=== PATIENT | female | born 1950 | race Caucasian/White ===

== ENCOUNTER 2017-12-10 16:16 | Emergency (ER) | payer OTHER ==
[~2017-12-10] VITALS: Ht 160 cm; Wt 108.6 kg
[~2017-12-10 16:16] MED LIST: ASPI81TA17 PO; FERR325T PO; GLIP5TAB8 PO; LEVO50TA51 PO; LOVA20TA PO; MAXZ25 PO; PIOG45 PO
[2017-12-10 16:48] VITALS: BP 189/88; PULSE 73; RESP 16; TEMP 98.8; O2SAT 99
[2017-12-10] MEDS ORDERED: FERR325T18 PO (18:38)
[2017-12-10] MEDS ORDERED: TRIA37.53 (18:38)
[2017-12-10] MEDS ORDERED: ASPI-516 CHEW (18:38)
[2017-12-10] MEDS ORDERED: LANTUS2P SQ (18:38)
[2017-12-10] MEDS ORDERED: GLIP5TAB8 PO (18:38)
[2017-12-10] MEDS ORDERED: LEVO50TA4 PO (18:38)
[2017-12-10 19:01] LABS: BILIRUBIN, URINE NEG (NEG); BLOOD, URINE NEG (NEG); GLUCOSE,URINE NEG (NEG); KETONE, URINE NEG (NEG); NITRITE,URINE NEG (NEG); PH, URINE 5.5 (5.0-8.5); URINE COLOR YELLOW (YELLW/STRAW); URINE LEUKOCYTE ESTERASE SMALL (NEG)
[2017-12-10 19:04] LABS: BACTERIA, URINE RARE /hpf; RBC, URINE 0-2 /hpf (0-3)
--- NOTE | 2017-12-10 19:29 | PD ---
HPI Chief Complaint: Abdominal Pain Time Seen by Provider: 19:17 Travel History International Travel<30 days: No Contact w/Intl Traveler<30days: No Traveled to known affect area: No History of Present Illness HPI 67-year-old female presents to the emergency department by private transportation the care of her for evaluation of right flank to right lower quadrant abdominal pain 2 weeks. Patient reports symptoms are worsened in the past 3-4 days. Symptoms are worsened by ambulation and eating. Patient notes associated nausea with increased pain with eating. Patient denies fever chills vomiting diarrhea change in bowel habit melena hematochezia and also denies any dysuria frequency urgency flank pain vaginal discharge or vaginal bleeding. Patient reports that intermittently she has had similar type pain although more severe in the past with associated fever. Patient states August 2016 she underwent cholecystectomy by Dr. Villagomez's at [facility] and subsequently had 3 episodes of abscess formation requiring interventional radiology to place drains. Patient has done well for some time since March 2017 without similar symptoms. Patient is also noted some swelling of the bilateral lower extremities since October. Patient denies chest pain shortness of breath orthopnea or PND. Patient has had renal insufficiency in the past. Patient denies any long-distance travel protracted bedrest or surgical procedure. Patient denies any history of clotting disorder or DVT. Patient states that she is given a prescription for Bumex to take as needed for lower extremity swelling but because of her right-sided flank and abdominal pain decided not to take the Bumex. Patient's had no increased redness or warmth to the lower extremities. Patient rates her pain 8/10 in intensity. Patient is taken acetaminophen 1 dose for discomfort. Patient is noted weight gain. Patient takes low-dose aspirin daily but no other blood thinning agents. Patient has history of anemia hypertension dyslipidemia diabetes renal insufficiency sleep apnea TIA hypothyroidism obesity as well as dependent/ peripheral edema. Patient denies known coronary vessel disease myocardial infarction angina or CHF. PFSH Past Medical History Narrative Medical anemia hypertension dyslipidemia diabetes renal insufficiency sleep apnea TIA hypothyroidism obesity as well as dependent/peripheral edema; cholecystectomy appendectomy hysterectomy tonsillectomy post cholecystectomy abscess w/ drainage ; no tobacco use no alcohol use; nursing notes reviewed Hx Anticoagulant Therapy: Yes (asa 81mg) Blood Disorders: No Cancer: No Cardiovascular Problems: Yes (htn on meds) Cerebrovascular Accident: Yes (Hx TIA) Diabetes: Yes (type 2) Patient Takes Glucophage: No Diminished Hearing: No Endocrine: Yes Genitourinary: No Hepatitis: No Hiatal Hernia: No Hypertension: Yes Immune Disorder: No Medical other: Yes (BACK) Musculoskeletal: No Neurologic: Yes (CVA) Psychiatric: No Reproductive: No Respiratory: No Thyroid Disease: Yes Tetanus Vaccination: < 5 Years Influenza Vaccination: No ?: Not Past Surgical History Abdominal Surgery: Yes (APPENDECTOMY) AICD: No Appendectomy: Yes Arteriovenous Shunt: No Cholecystectomy: Yes Gynecologic Surgery: Yes (HYSTERECTOMY) Hysterectomy: Yes Insulin Pump: No Joint Replacement: No Pacemaker: No Tonsillectomy: Yes Other Surgery: Yes Social History Alcohol Use: No Tobacco Use: No Substance Use: No Allergies-Medications (Allergen,Severity, Reaction): Coded Allergies: No Known Allergies (Verified Adverse Reaction, Unknown, 12/10/17) Reported Meds & Prescriptions Reported Meds & Active Scripts Active Zofran Odt (Ondansetron Odt) 4 Mg Tab 4 Mg SL Q6HR PRN Tramadol (Tramadol HCl) 50 Mg Tab 50 Mg PO Q6H PRN Keflex (Cephalexin) 500 Mg Capsule 500 Mg PO Q6H 7 Days Bactrim DS (Sulfamethoxazole-Trimethoprim) 800-160 Mg Tab 1 Tab PO BID Reported Lantus Inj (Insulin Glargine) 1,000 Unit/10 Ml Vial 20 Units SQ HS Triamterene-Hydrochlorothiazide 37.5-25 Mg Cap 1 Cap DAILY Levothyroxine (Levothyroxine Sodium) 50 Mcg Tab 50 Mcg PO DAILY Glipizide 5 Mg Tab 5 Mg PO BIDAC Take 30 minutes before a meal Ferrous Sulfate 325 Mg (65 Mg Iron) Tablet 325 Mg PO DAILY Aspirin 81 Mg Chew 81 Mg CHEW DAILY Review of Systems Except as stated in HPI: all other systems reviewed are Neg General / Constitutional: Positive: Chills, No: Fever Eyes: No: Visual changes HENT: No: Congestion Cardiovascular: Positive: Edema, No: Chest Pain or Discomfort, Diaphoresis, Dyspnea on exertion Respiratory: No: Shortness of Breath, Orthopnea, Pleuritic Pain Gastrointestinal: Positive: Nausea, Abdominal Pain, No: Vomiting, Diarrhea, Hematemesis, Hematochezia Genitourinary: Positive: Flank Pain, No: Dysuria Musculoskeletal: Positive: Edema, Pain (anterior right hassan/lower leg) Skin: Positive Rash (right anterior lower leg redness and warmth) Neurologic: No: Weakness, Dizziness, Syncope Psychiatric: Positive: Anxiety Endocrine: No: Heat Intolerance, Cold Intolerance Hematologic/Lymphatic: No: Lymph Node Enlargement Physical Exam Narrative GENERAL: Well-developed well-nourished obese female no acute distress no respiratory distress resting supine. SKIN: Warm and dry. HEAD: Normocephalic. EYES: No scleral icterus. No injection or drainage. NECK: Supple, trachea midline. No JVD or lymphadenopathy. CARDIOVASCULAR: Regular rate and rhythm without murmurs, gallops, or rubs. RESPIRATORY: Breath sounds equal bilaterally. No accessory muscle use. GASTROINTESTINAL: Abdomen soft, tenderness to palpation right upper quadrant right lower quadrant without guarding or rebound, nondistended. Rectal exam: Normal sphincter tone formed brown stool on exam glove Hemoccult negative. MUSCULOSKELETAL: No cyanosis, bilateral lower extremity 1+ pitting lower leg and pedal edema. Right anterior lower leg with erythema and increased warmth area 10 cm x 14 cm, not circumferential and sparing the foot, also no ascending erythema or right groin lymphadenopathy. No induration no fluctuance no pointing no vesicles no pustules. No ecchymosis or abrasion. Dorsalis pedis pulse 2+ to palpation. BACK: Nontender without obvious deformity. Right-sided CVA tenderness. Data Data Last Documented VS Vital Signs Date Time Temp Pulse Resp B/P (MAP) Pulse Ox O2 Delivery O2 Flow Rate FiO2 12/10/17 21:30 88 16 178/80 (112) 98 Room Air 12/10/17 16:48 98.8 Orders Orders Urinalysis - C+S If Indicated (12/10/17 17:17) Complete Blood Count With Diff (12/10/17 19:17) Comprehensive Metabolic Panel (12/10/17 19:17) Lipase (12/10/17 19:17) Lactic Acid (12/10/17 19:17) Prothrombin Time / Inr (Pt) (12/10/17 19:17) Act Partial Throm Time (Ptt) (12/10/17 19:17) Iv Access Insert/Monitor (12/10/17 19:17) Ecg Monitoring (12/10/17 19:17) Oximetry (12/10/17 19:17) Sodium Chloride 0.9% Flush (Ns Flush) (12/10/17 19:30) Electrocardiogram (12/10/17 19:17) Chest, Single Ap (12/10/17 19:17) Troponin I (12/10/17 19:17) Ct Abd/Pel W/O Iv Contrast (12/10/17 ) Ondansetron Inj (Zofran Inj) (12/10/17 20:45) Morphine Inj (Morphine Inj) (12/10/17 20:45) Labs Laboratory Tests Test 12/10/17 18:45 12/10/17 19:58 Urine Color YELLOW Urine Turbidity CLEAR Urine pH 5.5 Urine Specific [place] LESS/EQUAL 1.005 Urine Protein NEG mg/dL Urine Glucose (UA) NEG mg/dL Urine Ketones NEG mg/dL Urine Occult Blood NEG Urine Nitrite NEG Urine Bilirubin NEG Urine Urobilinogen 0.2 MG/DL Urine Leukocyte Esterase SMALL Urine RBC 0-2 /hpf Urine WBC 3-5 /hpf Urine Squamous Epithelial Cells 6-8 /hpf Urine Bacteria RARE /hpf Microscopic Urinalysis Comment CULT NOT INDICATED White Blood Count 17.7 TH/MM3 Red Blood Count 4.97 MIL/MM3 Hemoglobin 11.6 GM/DL Hematocrit 36.2 % Mean Corpuscular Volume 72.8 FL Mean Corpuscular Hemoglobin 23.2 PG Mean Corpuscular Hemoglobin Concent 31.9 % Red Cell Distribution Width 13.6 % Platelet Count 286 TH/MM3 Mean Platelet Volume 9.4 FL CBC Comment AUTO DIFF Differential Total Cells Counted 100 Neutrophils % (Manual) 66 % Lymphocytes % 28 % Monocytes % 6 % Neutrophils # (Manual) 11.7 TH/MM3 Differential Comment FINAL DIFF MANUAL Platelet Estimate NORMAL Platelet Morphology Comment NORMAL Prothrombin Time 9.4 SEC Prothromb Time International Ratio 0.9 RATIO Activated Partial Thromboplast Time 20.1 SEC Blood Urea Nitrogen 23 MG/DL Creatinine 1.20 MG/DL Random Glucose 148 MG/DL Total Protein 8.2 GM/DL Albumin 3.5 GM/DL Calcium Level 9.4 MG/DL Alkaline Phosphatase 179 U/L Aspartate Amino Transf (AST/SGOT) 29 U/L Alanine Aminotransferase (ALT/SGPT) 42 U/L Total Bilirubin 0.6 MG/DL Sodium Level 137 MEQ/L Potassium Level 4.1 MEQ/L Chloride Level 103 MEQ/L Carbon Dioxide Level 27.3 MEQ/L Anion Gap 7 MEQ/L Estimat Glomerular Filtration Rate 45 ML/MIN Lactic Acid Level 0.8 mmol/L Troponin I LESS THAN 0.02 NG/ML Lipase 98 U/L [facility] Medical Decision Making Medical Screen Exam Complete: Yes Emergency Medical Condition: Yes Medical Record Reviewed: Yes Interpretation(s) Lactic acid: 0.8, not elevated troponin I: less jaime 0.02, not elevated Last Impressions Chest X-Ray 12/10/17 1917 Signed Impressions: Service Date/Time: Sunday, December 10, 2017 19:28 - CONCLUSION: No acute disease. Mannie Mims MD Abdomen/Pelvis CT 12/10/17 0000 Signed Impressions: Service Date/Time: Sunday, December 10, 2017 21:13 - CONCLUSION: No acute disease. Mannie Mims MD CBC & BMP Diagram 12/10/17 19:58 Total Protein 8.2, Albumin 3.5, Calcium Level 9.4, Alkaline Phosphatase 179 H, Aspartate Amino Transf (AST/SGOT) 29, Alanine Aminotransferase (ALT/SGPT) 42, Total Bilirubin 0.6 Vital Signs Date Time Temp Pulse Resp B/P (MAP) Pulse Ox O2 Delivery O2 Flow Rate FiO2 12/10/17 21:30 88 16 178/80 (112) 98 Room Air 12/10/17 20:26 64 16 179/76 (110) 98 Room Air 12/10/17 16:48 98.8 73 16 189/88 (121) 99 EKG normal sinus rhythm rate is [address] elevation or injury pattern change noted poor progression for age-indeterminate anterior FL and age- indeterminate inferior QS lead III and aVF UA: Rare bacteria and leukocyte esterase; culture not indicated Differential Diagnosis Abdominal pain, recurrent intra-abdominal abscess, partial bowel obstruction, gastroenteritis, pancreatitis, renal colic, atypical chest pain, AAA, intestinal ischemia, shingles, cellulitis Narrative Course Patient placed on political worker with continuous pulse oximetry IV access obtained specimens collected and sent for resulting; urinalysis specimen collected and resulted in triage shows leukocyte esterase and rare bacteria, culture not indicated. CBC is automated differential leukocytosis 17,000 with normal automated differential anemia of chronic disease which patient is being followed for by her primary as well as hematology this is unchanged reportedly Metabolic panel renal insufficiency which is reportedly chronic patient is followed for stage III chronic renal insufficiency; random glucose mildly elevated at 148 otherwise values are grossly normal range EKG sinus rhythm no acute ST elevation injury pattern or ectopy noted QS age- indeterminate inferiorly and poor R-wave progression anteriorly for nonacute age -indeterminate anterior injury; troponin I less than 0.02 patient denies chest pain or shortness of breath or referred neck, jaw, mid scapular back, shoulder, or arm pain. Lactic acid is not elevated at 0.8 Vital signs patient continues to have no fever, no increased respiratory rate, and no increased heart rate. Patient refuses further attempts at IV access is aware of need for possible IV access should her CT abdomen pelvis without any abdominal intrathoracic or intrapelvic abnormality CT abdomen pelvis noncontrast per reading radiologist reveals no acute intra- abdominal or pelvic process patient refused CT with IV access because of reported history of chronic renal insufficiency which she has creatinine of 1.20 and GFR 45 no acute Joe values available since June 2010. Patient is aware imaging study is less specific for vascular related issues and abscess without contrast but still refuses IV contrast. At this time appears that white cell count may be reflective of focal right lower leg cellulitis will start patient on Keflex and Bactrim unclear as to etiology of her 2 week right flank and abdominal pain discomfort patient at this time is a candidate to use [id number] ibuprofen sparingly every 6-8 hours for pain associated with inflammation and follow close with her primary care provider also there is no evidence of any vesicular rash to suspect shingles. Patient provided prescription for Zofran as needed for nausea and/or vomiting as well as tramadol as needed for pain greater than 5/10 intensity. With patient's nurse at bedside, patient with spouse at bedside were provided results of imaging, EKG, and lab tests discussed in detail; patient and spouse' s questions answered to their satisfaction. Patient at this time is stable for outpatient management and follow-up with primary care provider [facility] Point of Care Internal Pos. & Neg. Controls: Passed Fecal Specimen Occult Blood: Negative Diagnosis Primary Impression: Cellulitis of right lower extremity without foot Additional Impressions: Abdominal pain Qualified Codes: R10.11 - Right upper quadrant pain Chronic renal insufficiency Qualified Codes: N18.3 - Chronic kidney disease, stage 3 (moderate) Anemia Referrals: Primary Care Physician 2 days Patient Instructions: General Instructions Additional Instructions: Take chronic medications as chronically prescribed Complete course of antibiotic as prescribed Elevate right lower extremity to decrease swelling Monitor temperature every 4 hours with thermometry take acetaminophen/Tylenol every 4 hours for fever 100.4F or greater Take ibuprofen/Advil/Motrin 600 mg as often as every 6-8 hours as needed for fever 100.4F or greater or sparingly as needed for pain associated with inflammation; may use maximum dose 800 mg no more often than every 8 hours avoid high-dose ibuprofen for greater than 1-2 doses for pain associated inflammation. Return to the emergency department for any change in condition or for pain, fever, vomiting, or any concerns. May take tramadol/Ultram as prescribed as needed as often as every 6 hours for pain greater than 5/10 in intensity; this may cause drowsiness, impaired judgment, delayed reaction time, increased risk for fall, and should not be taken with alcoholic beverages or other pain medication. May take Zofran as prescribed as needed for nausea and/or vomiting Follow-up with your primary care provider call office on Tuesday to schedule follow-up appointment on Tuesday or Tuesday of this week. Med/Other Pt SpecificInfo: Prescription(s) given Scripts Ondansetron Odt (Zofran Odt) 4 Mg Tab 4 MG SL Q6HR Y for Nausea/Vomiting, #10 TAB 0 Refills Prov: Babs Carrington MD 12/10/17 Tramadol (Tramadol) 50 Mg Tab 50 MG PO Q6H Y for PAIN, #7 TAB 0 Refills Prov: Babs Carrington MD 12/10/17 Cephalexin (Keflex) 500 Mg Capsule 500 MG PO Q6H for Infection for 7 Days, #28 CAP 0 Refills Prov: Babs Carrington MD 12/10/17 Sulfamethoxazole-Trimethoprim (Bactrim DS) 800-160 Mg Tab 1 TAB PO BID for Infection, #14 TAB 0 Refills Prov: Babs Carrington MD 12/10/17 Disposition: 01 DISCHARGE HOME Condition: Stable Babs Carrington MD Dec 10, 2017 19:29
[2017-12-10] MEDS ORDERED: SODIUM CHLORIDE 0.9% FLUSH 10 ML FLUSH IV FLUSH PRN (19:30)
--- NOTE | 2017-12-10 19:45 | RADRPT ---
EXAM DATE/TIME: 12/10/2017 19:28 [facility] COMPARISON: No previous studies available for comparison. INDICATIONS : Free air. MEDICAL HISTORY : Diabetes mellitus type 2. Hypertension. SURGICAL HISTORY : Appendectomy. Hysterectomy. ENCOUNTER: Initial ACUITY: 4 - 6 days PAIN SCORE: 7/10 LOCATION: Right chest inferior FINDINGS: A single view of the chest demonstrates the lungs to be symmetrically aerated without evidence of mas s, infiltrate or effusion. The cardiomediastinal contours are unremarkable. Osseous structures are intact. CONCLUSION: No acute disease. Mannie Mims MD on December 10, 2017 at 19:42 Board Certified Radiologist. This report was verified electronically.
[2017-12-10 20:18] LABS: HEMATOCRIT 36.2 % (35.0-46.0); HEMOGLOBIN 11.6 GM/DL (11.6-15.3); MEAN CELL VOLUME 72.8 FL (80.0-100.0); MEAN CORPUSCULAR HEMOGLOBIN 23.2 PG (27.0-34.0); MEAN CORPUSCULAR HGB CONC 31.9 % (32.0-36.0); MEAN PLATELET VOLUME 9.4 FL (7.0-11.0); PLATELET COUNT 286 TH/MM3 (150-450); RED BLOOD COUNT 4.97 MIL/MM3 (4.00-5.30); RED CELL DISTRIBUTION WIDTH 13.6 % (11.6-17.2); WHITE BLOOD COUNT 17.7 TH/MM3 (4.0-11.0)
[2017-12-10 20:26] VITALS: BP 179/76; PULSE 64; RESP 16; O2SAT 98
[2017-12-10 20:28] LABS: CHLORIDE 103 MEQ/L (98-107); SODIUM (NA) 137 MEQ/L (136-145)
[2017-12-10 20:32] LABS: ALBUMIN 3.5 GM/DL (3.4-5.0); BICARBONATE 27.3 MEQ/L (21.0-32.0); BLOOD UREA NITROGEN 23 MG/DL (7-18); CALCIUM 9.4 MG/DL (8.5-10.1); GLUCOSE,RANDOM 148 MG/DL (74-106)
[2017-12-10 20:35] LABS: ALT (GPT) 42 U/L (10-53); AST (GOT) 29 U/L (15-37); GLOMERULAR FILTRATION RATE 45 ML/MIN (>89)
[2017-12-10 20:37] LABS: TOTAL BILIRUBIN ADULT 0.6 MG/DL (0.2-1.0); TOTAL PROTEIN 8.2 GM/DL (6.4-8.2)
[2017-12-10 20:38] LABS: ALKALINE PHOSPHATASE 179 U/L (45-117); INTERNATIONAL NORMALIZED RATIO 0.9 RATIO; PROTHROMBIN TIME - PATIENT 9.4 SEC (9.8-11.6)
[2017-12-10 20:40] LABS: TROPONIN I LESS THAN 0.02 NG/ML (0.02-0.05)
[2017-12-10 20:43] LABS: LYMPHOCYTES 28 % (9-44); MONOCYTES 6 % (0-8); NEUTROPHIL # MANUAL DIFF 11.7 TH/MM3 (1.8-7.7); POLYS (SEG NEUTROPHILS) 66 % (16-70)
[2017-12-10] MEDS ORDERED: ONDANSETRON HCL 4 MG/2 ML VIAL IV PUSH ONE (20:45)
[2017-12-10] MEDS ORDERED: MORPHINE SULFATE 2 MG/ML INJ IV PUSH ONE (20:45)
[2017-12-10 21:30] VITALS: BP 178/80; PULSE 88; RESP 16; O2SAT 98
--- NOTE | 2017-12-10 21:34 | RADRPT ---
EXAM DATE/TIME: 12/10/2017 21:13 [facility] COMPARISON: No previous studies available for comparison. INDICATIONS : Right flank and right lower quadrant pain for 2 weeks ORAL CONTRAST: No oral contrast ingested. RADIATION DOSE: 24.99 CTDIvol (mGy) MEDICAL HISTORY : Hypertension. Diabetes mellitus type 1. Renal insufficiency. SURGICAL HISTORY : Appendectomy. Cholecystectomy.Hysterectomy. ENCOUNTER: Initial ACUITY: 2 weeks PAIN SCALE: 8/10 LOCATION: Right flank TECHNIQUE: Volumetric scanning of the abdomen and pelvis was performed. Using automated exposure control and ad justment of the mA and/or kV according to patient size, radiation dose was kept as low as reasonably achievable to obtain optimal diagnostic quality images. DICOM format image data is available electro nically for review and comparison. FINDINGS: Lung bases are clear. There are degenerative changes of the spine and previous vertebroplasty at T8. No pleural or pericardial effusions are seen. Liver, spleen, pancreas, adrenals and kidneys are unrem arkable. Urinary bladder is unremarkable. The patient is status post appendectomy, cholecystectomy, a nd hysterectomy. Diverticulosis of the sigmoid colon and descending colon identified as well as the a scending colon. There are no inflammatory changes seen in the abdomen or pelvis. Atherosclerotic calc ifications of the aorta and iliac vessels are noted. Tiny cyst right midpole kidney anteriorly. CONCLUSION: No acute disease. Mannie Mims MD on December 10, 2017 at 21:30 Board Certified Radiologist. This report was verified electronically.
[2017-12-10] MEDS ORDERED: CEPH-460 PO (22:23)
[2017-12-10] MEDS ORDERED: BACT800T5 PO (22:23)
[2017-12-10] MEDS ORDERED: TRAM50TA PO (22:30)
[2017-12-10] MEDS ORDERED: IBUPROFEN 600 MG TAB PO ONE (22:30)
[2017-12-10] MEDS ORDERED: SULFAMETHOXAZOLE-TRIMETHOPRIM DS 800-160 MG TAB PO ONE (22:30)
[2017-12-10] MEDS ORDERED: ZOFR4TAB3 SL (22:30)
[2017-12-10 23:00] VITALS: BP 167/83
--- NOTE | 2017-12-11 12:30 | EKG ---
Date Performed: 12/10/2017 Time Performed: 20:46:29 PTAGE: 67 years EKG: Sinus rhythm LOW QRS VOLTAGE IN PRECORDIAL LEADS POSSIBLE ANTERIOR MYOCARDIAL INFARCTION ABNORMAL ECG Compared to PREVIOUS TRACING , poor R wave progression is now present in the anterior precordium, whi ch may reflect a lead change and clinical correlation is recommended. PREVIOUS TRACIN07/05/2010 13 .40 DOCTOR: Pramod Mims Interpretating Date/Time 12/11/2017 12:29:11
== END 2017-12-10 23:02 | disposition home or self-care (01) ==
LOC: PHED 16:16
DX: L03.115 Cellulitis of right lower limb (principal); R10.11 Right upper quadrant pain; D64.9 Anemia, unspecified; R94.31 Abnormal electrocardiogram [ECG] [EKG]; I12.9 Hypertensive chronic kidney disease with stage 1 through stage 4 chronic kidney disease, or unspecified chronic kidney disease; E11.22 Type 2 diabetes mellitus with diabetic chronic kidney disease; N18.3 Chronic kidney disease, stage 3 (moderate); E03.9 Hypothyroidism, unspecified; Z86.73 Personal history of transient ischemic attack (TIA), and cerebral infarction without residual deficits
CPT/HCPCS: 71045; 74176; 80053; 81001; 83605; 83690; 84484; 85007; 85027; 85610; 85730; 93005; 99285